=== PATIENT | female | born 1990 | race Caucasian/White ===

== ENCOUNTER 2016-10-05 08:00 | Outpatient (CLI) | payer OTHER, MEDICAID | END 2016-10-05 08:01 | disposition home or self-care (01) | DX: Z13.9 Encounter for screening, unspecified (principal) ==

== ENCOUNTER 2016-10-15 10:53 | Outpatient (CLI) | payer OTHER, MEDICAID | END 2016-10-15 10:54 | disposition home or self-care (01) | DX: L02.92 Furuncle, unspecified (principal) ==

== ENCOUNTER 2016-10-28 08:56 | Outpatient (CLI) | payer OTHER, MEDICAID | END 2016-10-28 08:57 | disposition home or self-care (01) | DX: K43.6 Other and unspecified ventral hernia with obstruction, without gangrene (principal) ==

== ENCOUNTER 2016-12-06 13:37 | Emergency (ER) | payer OTHER, MEDICAID | END 2016-12-06 16:35 | disposition home or self-care (01) | DX: J06.9 Acute upper respiratory infection, unspecified (principal); F17.200 Nicotine dependence, unspecified, uncomplicated ==